=== PATIENT | female | born 1970 | race Caucasian/White ===

== ENCOUNTER 2016-09-02 15:21 | Emergency (ER) | payer OTHER ==
--- NOTE | 2016-09-02 18:05 | ED CLINICAL REPORT ---
Clinical Report - Physicians/Mid Levels [facility] [address] [place] [address] 09/02/2016 15:24 [id number] Time Seen: 15:30 Sep 02 2016. Arrived- By private vehicle. Historian- patient. HISTORY OF PRESENT ILLNESS Chief Complaint: ABDOMINAL PAIN. It is described as cramping and it is described as located in the left abdomen and left lower quadrant. This started about 2 months ago; Patient has been having constipation for the last 2 months. She says in the past she's been diagnosed with IBS but hasn't had constipation for this long. She did have 2 small bowel movements this morning because she says she started taking stool softeners. She said she discussed this with her primary care provider, however, she says she is a new patient with them and they didn't have enough time to address this in addition to her other medical issues. She says she's been under more stress lately due to some family issues. She has had alternating weight loss or weight gain. No blood in the stool. No change in stool caliber. She had a colonoscopy over 10 years agobut hasn't had one recently. and is still present. No nausea, loss of appetite, vomiting or diarrhea. Similar symptoms previously: Recent medical care: The patient was seen recently at another facility in a clinic. REVIEW OF SYSTEMS The patient has had constipation and weight loss. No black stools, hematemesis, difficulty with urination, pain with urination or bloody stools. No fever, headache, chest pain, difficulty breathing or cough. No joint pain, skin rash or chills. Heartburn off and on for 2 months. All systems otherwise negative, except as recorded above. PAST HISTORY See nurses notes. No history of hypertension or diabetes mellitus. SOCIAL HISTORY No alcohol use or drug use. ADDITIONAL NOTES The nursing notes have been reviewed. PHYSICAL EXAM Appearance: Alert. Oriented X3. No acute distress. Anxious. Does not appear to be in pain. Eyes: Pupils equal, round and reactive to light. Eyes normal inspection. ENT: Nose normal. Pharynx normal. Neck: Normal inspection. Neck supple. No JVD or lymphadenopathy. CVS: Normal heart rate and rhythm. Heart sounds normal. Respiratory: No respiratory distress. Breath sounds normal. Abdomen: Soft. Mild tenderness in the left lower quadrant. No guarding or rebound tenderness. No organomegaly. No mass. Mildly obese. Back: Normal inspection. No CVA tenderness. Skin: Skin warm and dry. Normal skin color. Normal skin turgor. Extremities: Extremities exhibit normal ROM. No lower extremity edema. Neuro: Oriented X 3. No motor deficit. No sensory deficit. LABS, X-RAYS, AND EKG Laboratory Tests: UA-Culture if indicated: (EMILY: 09/02/2016 15:30) ( [facility] [place] 09/02/2016 16:36) Final results Test Result Flag Units (Reference) URINE COLOR YELLOW URINE APPEARANCE CLEAR URINE GLUCOSE NEGATIVE (NEGATIVE) URINE BILIRUBIN NEGATIVE (NEGATIVE) URINE KETONE NEGATIVE (NEGATIVE) URINE SPECIFIC GRAVITY <= 1.005 L (1.010-1.030) URINE PH 6.0 (5.0-8.0) URINE PROTEIN NEGATIVE (NEGATIVE) URINE UROBILINOGEN 0.2 EU/dL (0.2-1.0) URINE NITRITE NEGATIVE (NEGATIVE) URINE BLOOD TRACE-INTACT (NEGATIVE) URINE LEUK ESTERASE POSITIVE (NEGATIVE) URINE RBC 1-3 rbc/hpf (0-1) URINE WBC 10-15 wbc/hpf (0-1) URINE EPITHELIAL CELLS 3-5 EPI/hpf (0-5) URINE BACTERIA MODERATE (2+ TO 3+) (NONE SEEN) URINE COMMENT CULTURE INDICATED MUCUS 2+URINE CULTURES ARE SET-UP BASED ON THE FOLLOWING CRITERIA:POSITIVE NITRITEPOSITIVE LEUKOCYTE ESTERASEGREATER THAN 10 WHITE BLOOD CELLSMODERATE (2+) OR GREATER BACTERIA Urine: (EMILY: 09/02/2016 15:30) ( [facility] 09/02/2016 16:29) Final results Test Result Flag Units (Reference) URINE NEGATIVE CBC w Diff: (EMILY: 09/02/2016 16:20) ( MsgRcvd 09/02/2016 16:36) Final results Test Result Flag Units (Reference) WHITE BLOOD COUNT 7.5 K/uL (4.5-11.5) RED BLOOD COUNT 4.25 M/uL (4.00-5.20) HEMOGLOBIN 13.3 gm/dL (12.0-16.0) HEMATOCRIT 40.2 % (36.0-46.0) MEAN CELL VOLUME 95 fL (80-100) MEAN CORPUSCULAR HGB 31 pg (26-34) MEAN CORPUSCULAR HGB CONC 33 g/dL (31-37) RED CELL DISTRIBUTION WIDTH 13.8 % (11.6-14.8) PLATELET COUNT 299 K/uL (150-400) NEUTROPHIL % 58.0 % (50-75) LYMPH % 30.1 % (25-40) MONO % 9.9 % (3-14) EOSINOPHIL % 1.7 % (0-4) BASOPHIL % 0.3 % (0-2) CMP: (EMILY: 09/02/2016 16:20) ( MsgRcvd 09/02/2016 17:57) Final results Test Result Flag Units (Reference) GLUCOSE 116 H mg/dL (70-110) BUN 12 mg/dL (7-18) CREATININE 1.0 mg/dL (0.6-1.3) Estimated GFR >60 mL/min Estimated GFR- >60 mL/min Note: Persistent reduction over 3 months in eGFR<60 mL/min/1.73 m2 defines CKD. Patients with eGFR values>=60 mL/min/1.73 m2 may also have CKD if evidence ofpersistent proteinuria. Additional information may be foundat www.kidney.org. SODIUM 145 mmol/L (136-145) POTASSIUM 3.6 mmol/L (3.5-5.1) CHLORIDE 106 mmol/L (98-107) CARBON DIOXIDE 30 mmol/L (21-32) CALCIUM 9.2 mg/dL (8.5-10.1) TOTAL PROTEIN 7.8 g/dL (6.4-8.2) ALBUMIN 4.0 g/dL (3.3-5.0) BILIRUBIN, TOTAL 0.7 mg/dL (0.0-1.0) ALKALINE PHOSPHATASE 64 U/L (46-116) AST (SGOT) 17 U/L (15-37) ALT (SGPT) 27 U/L (12-78) THYROID STIMULATING HORMONE 1.041 uIU/mL (0.34-3.74) . PROGRESS AND PROCEDURES Course of Care: 16:07 09/02/16. Patient stable. Long-standing issues. No fever. Very mild left lower quadrant pain. We'll get basic labs for reassurance but mostly this is an issue that needs to be followed by her primary care provider and GI in an outpatient setting. 18:08 09/02/16. Lab is back and looks good. We'll discharge her home. She is remained stable the entire time here. Add MiraLAX. Follow up with her primary care provider next week. Disposition: Discharged in good condition. CLINICAL IMPRESSION Constipation Chronic irritable bowel syndrome. INSTRUCTIONS Rest at home today and tomorrow until better. Drink plenty of fluids. No dietary restrictions. Warnings: Further evaluation is necessary. GENERAL WARNINGS: Return or contact your physician immediately if your condition worsens or changes unexpectedly, if not improving as expected, or if other problems arise. SPECIFICALLY, return if you develop fever, vomiting, the inability to keep fluids down, blood in diarrhea or fainting. Prescription Medications: Miralax: take 1 measuring cupful supplied mixed in 8 ounces water or juice every day. Dispense twenty-six (26) ounce bottle. Two refills. Substitution is permissible. Follow-up: Follow up with your doctor in four days even if well. Follow-up with: Follow up in two weeks. Reason for referral: to discuss colonoscopy as recommended by her primary care provider. (Electronically signed by Shree Dow, 09/02/2016 18:42)
--- NOTE | 2016-09-02 18:06 | ED NURSING NOTES ---
Clinical Report - Nurses [facility] [address] [place] [address] 09/02/2016 15:24 Patient: KATE MILLER TRIAGE Triage time 1531. Acuity: LEVEL 3. Chief Complaint: ABDOMINAL PAIN. --15:47 Shelbie Fabian R.N. 15:31 09/02/16. BP: 141/90. HR: 88. RR: 20. O2 saturation: 98%. Temp: 98.1 F. Pain level now: 09/09. --15:47 Shelbie Fabian R.N. Weight: 81.6 kg stated. Height/Length: 63 inches Per Patient. BMI: 31.9. --15:31 Shelbie Fabian R.N. Medications Senna Smooth Oral 1 daily . Vitamin D Oral high dose 1x week . --18:21 Shelbie Fabian R.N. Allergies Latex. Neurontin. Sulfa Antibiotics. --15:35 Shelbie Fabian R.N. History Arrived by private vehicle. Historian: patient. Unaccompanied. Primary physician (harry méndez). The patient has had abdominal pain. ( pt has low midline abd pain, pt had been having constipation--has been taking stool softeners and had 2 BM's today so feeling better. - pt also some acid reflux/heartburn pain--has had in the past, thought she might have ulcers). No nausea or vomiting. SOCIAL HX: Smoker- current status unknown (quit +12 years ago). No alcohol use or drug use. --15:47 Shelbie Fabian R.N. PROBLEMS: Pharyngitis. DVT - Deep Venous Thrombosis. Acute Pain. Spurs in right knee. Asthma. Blood clot in left "calf". Arthritis. Chronic Back Pain. Sciatica. --15:34 Shelbie Fabian R.N. ADDITIONAL SURGERIES: Ankle. Skin grafting. --15:34 Shelbie Fabian R.N. Interventions ID band on patient. To treatment room. --15:47 Shelbie Fabian R.N. PHYSICAL ASSESSMENT 1531. Ambulatory to room. Patient gowned. GENERAL / NEURO / PSYCH: Alert. Oriented X 4. Appears in no acute distress. RESPIRATORY: Respirations not labored. CVS: Capillary refill less than 2 seconds. GI / : Abdomen soft. No nausea noted. No emesis noted. No diarrhea. No blood in the stool. SKIN: Skin is warm and dry. --15:47 Shelbie Fabian R.N. ( Pt also reports that she is having lucio-menopausal hot flashes). --15:48 Shelbie Fabian R.N. NURSING PROGRESS NOTES 15:31 09/02/16. Patient gowned. Head of bed elevated. Reassurance given. Patient identifiers checked. Call light placed in reach. Side rails up. Bed placed in lowest position. Patient ready for evaluation- chart flagged. --15:31 Shelbie Fabian R.N. 15:32 09/02/16. Patient ID band checked for patient name and birthdate: patient confirmed. Clean catch urine collected with return of yellow-colored urine; sample sent to lab for urinalysis and culture. Specimen labeled in the presence of the patient. --15:42 Shelbie Fabian R.N. 16:20 09/02/2016 Site #1 started via IV in the left antecubital space with an 20g angiocath, with aseptic technique and good blood return; one attempt. Blood drawn: rainbow set. Labeled in the presence of the patient and sent to the lab. Saline lock flushed with 10 mL saline. --16:32 Shelbie Fabian R.N. 18:05 09/02/2016 Site #1 removed upon discharge. Bandaid applied. --18:18 Shelbie Fabian R.N. 17:00 resting quietly, watching t.v. in no acute distress. --18:19 Shelbie Fabian R.N. 17:00 09/02/16. BP: 141/56. HR: 76. RR: 18. O2 saturation: 99%. Temp: deferred. Pain level now: 08/12. --18:19 Shelbie Fabian R.N. DISPOSITION / DISCHARGE 18:10. Condition at departure: improved and stable. No learning barriers present. Discharge instructions provided and reviewed with the patient. Reviewed medication(s) (mirilax). Patient verbalized understanding. Written instructions provided in Spanish. The patient was discharged home and unaccompanied at time of discharge. She left the Emergency Department ambulatory and via private vehicle. Patient driving. --18:17 Shelbie Fabian R.N. 18:10 09/02/16. BP: 158/71. HR: 81. RR: 16. O2 saturation: 98%. Temp: deferred. Pain level now: 07/12. --18:17 Shelbie Fabian R.N. Locked/Released at 09/02/2016 18:22 by Shelbie Fabian R.N.
--- NOTE | 2016-09-02 18:06 | ED ORDER SUMMARY ---
..... Patient: KATE MILLER OrderSheet [facility] VisitID: [id number] [address] [place] [address] 45y, F Registration Date/Time: 09/02/2016 ORDER SHEET Weight: 81.6 kg (stated) Allergies: Latex, Neurontin, Sulfa Antibiotics GENERAL ORDERS: CBC w Diff Urgent (16:03 09/02/2016 JCoates) (Ack 16:05 LTapper) (16:33 DDean R.N.) CMP Urgent (16:03 09/02/2016 JCoates) (Ack 16:05 LTapper) (16:33 DDean R.N.) UA-Culture if indicated Urgent (16:03 09/02/2016 JCoates) (Ack 16:05 LTapper) (16:16 DDean R.N.) Urine Urgent (16:03 09/02/2016 JCoates) (Ack 16:05 LTapper) (16:16 DDean R.N.) TSH Urgent (16:03 09/02/2016 JCoates) (Ack 16:05 LTapper) (16:33 DDean R.N.) MEDICATION ORDERS: IV FLUIDS: IV Saline Lock (16:03 09/02/2016 JCoates) (Ack 16:16 DDean R.N.) (16:33 DDean R.N.) ORDER SHEET NOTES: [Electronically signed by Sehlbie Fabian R.N. (18:22 09/02/2016)] [Electronically signed by Shree Dow (18:42 09/02/2016)] [Electronically locked/signed by Shelbie Fabian R.N. (18:22 09/02/2016)]
--- NOTE | 2016-09-02 18:06 | ED ORDER SUMMARY ---
..... Patient: KATE MILLER OrderSheet [facility] VisitID: [id number] [address] [place] [address] 45y, F Registration Date/Time: 09/02/2016 ORDER SHEET Weight: 81.6 kg (stated) Allergies: Latex, Neurontin, Sulfa Antibiotics GENERAL ORDERS: CBC w Diff Urgent (16:03 09/02/2016 JCoates) (Ack 16:05 LTapper) (16:33 DDean R.N.) CMP Urgent (16:03 09/02/2016 JCoates) (Ack 16:05 LTapper) (16:33 DDean R.N.) UA-Culture if indicated Urgent (16:03 09/02/2016 JCoates) (Ack 16:05 LTapper) (16:16 DDean R.N.) Urine Urgent (16:03 09/02/2016 JCoates) (Ack 16:05 LTapper) (16:16 DDean R.N.) TSH Urgent (16:03 09/02/2016 JCoates) (Ack 16:05 LTapper) (16:33 DDean R.N.) MEDICATION ORDERS: IV FLUIDS: IV Saline Lock (16:03 09/02/2016 JCoates) (Ack 16:16 DDean R.N.) (16:33 DDean R.N.) ORDER SHEET NOTES: [Electronically signed by Shelbie Fabian R.N. (18:22 09/02/2016)] [Electronically signed by Shree Dow (18:42 09/02/2016)] [Electronically locked/signed by Shelbie Fabian R.N. (18:22 09/02/2016)]
--- NOTE | 2016-09-02 18:42 | ED MAR SUMMARY ---
..... Medication Administration Record [facility] [address], [place] [id number] Patient: KATE MILLER Visit ID: [id number] 45y, F Weight: 81.6 kg Height/Length: 63 in BMI: 31.9 ALLERGIES: Latex, Neurontin, Sulfa Antibiotics
--- NOTE | 2016-09-02 18:42 | ED MED RECONCILIATION SUMMARY ---
Patient: KATE MILLER Medication Reconciliation Report [facility] VisitID: [id number] [address] [place] [address] 45y, F Registration Date/Time: 09/02/2016 Weight: 81.6 kg Height/Length: 63 in. BMI: 31.9 ALLERGIES: Latex, Neurontin, Sulfa Antibiotics The patient's Home Medications are listed below: THE FOLLOWING MEDICATIONS NEED TO BE RECONCILED: Senna Smooth Oral 1 daily Vitamin D Oral high dose 1x week The source(s) of the original Home Medication information: Not obtained. The following Medications were given to the patient in the Emergency Department: None. The following Medications were prescribed to the patient: Miralax: take 1 measuring cupful supplied mixed in 8 ounces water or juice every day. Dispense twenty-six (26) ounce bottle. Two refills. Substitution is permissible. -- Shree Dow
--- NOTE | 2016-09-02 18:42 | ED MED RECONCILIATION SUMMARY ---
Patient: KATE MILLER Medication Reconciliation Report [facility] VisitID: [id number] [address] [place] [address] 45y, F Registration Date/Time: 09/02/2016 Weight: 81.6 kg Height/Length: 63 in. BMI: 31.9 ALLERGIES: Latex, Neurontin, Sulfa Antibiotics The patient's Home Medications are listed below: THE FOLLOWING MEDICATIONS NEED TO BE RECONCILED: Senna Smooth Oral 1 daily Vitamin D Oral high dose 1x week The source(s) of the original Home Medication information: Not obtained. The following Medications were given to the patient in the Emergency Department: None. The following Medications were prescribed to the patient: Miralax: take 1 measuring cupful supplied mixed in 8 ounces water or juice every day. Dispense twenty-six (26) ounce bottle. Two refills. Substitution is permissible. -- Shree Dow
--- NOTE | 2016-09-02 18:42 | ED MAR SUMMARY ---
..... Medication Administration Record [facility] [address] [place], [place] [id number] Patient: KATE MILLER Visit ID: [id number] 45y, F Weight: 81.6 kg Height/Length: 63 in BMI: 31.9 ALLERGIES: Latex, Neurontin, Sulfa Antibiotics
--- NOTE | 2016-09-02 18:42 | ED DISCHARGE INSTRUCTIONS ---
Patient: KATE MILLER General Instructions [facility] VisitID: [id number] [place] [address] 45y, F Registration Date/Time: 09/02/2016 Constipation Chronic irritable bowel syndrome. INSTRUCTIONS Rest at home today and tomorrow until better. Drink plenty of fluids. No dietary restrictions. Warnings: Further evaluation is necessary. GENERAL WARNINGS: Return or contact your physician immediately if your condition worsens or changes unexpectedly, if not improving as expected, or if other problems arise. SPECIFICALLY, return if you develop fever, vomiting, the inability to keep fluids down, blood in diarrhea or fainting. Prescription Medications: Miralax: take 1 measuring cupful supplied mixed in 8 ounces water or juice every day. Dispense twenty-six (26) ounce bottle. Two refills. Substitution is permissible. Follow-up: Follow up with your doctor in four days even if well. Follow-up with: Follow up in two weeks. Reason for referral: to discuss colonoscopy as recommended by her primary care provider. ADDITIONAL INFORMATION Constipation (Adult) Constipation is bowel movements that are less frequent than usual. Stools often become very hard and difficult to pass. This may lead to abdominal pain and bloating. It may also cause painful bowel movements. Constipation may be due to a diet thats low in fiber. Some medications, especially pain medications, can also cause it. Constipation may be treated with enemas, suppositories, laxatives or stool softeners. Your doctor will advise you which will work best for you. Follow the advice below to help avoid this problem in the future. Home Care Medication: Take any medicines as directed. Some laxatives are safe only for occasional use. Others can be taken on a regular basis. Talk to your doctor or pharmacist if you have questions. General Care: Prescription pain medications can cause constipation. If you are prescribed pain medications, ask the doctor whether you should also take a stool softener. A diet high in fiber with plenty of fluids helps to maintain regular, soft bowel movements. The following foods are good sources of dietary fiber: Cereals and breads: Whole grain cereal with bran, oatmeal, rolled oats, whole grain breads Fruits: All fruits (fresh and dried), raisins, prunes, apricots, berries, figs Vegetables: Any fresh vegetables, especially peas, broccoli, brussels sprouts, winter squash, green beans, cauliflower, simeon beans, carrots Other: Popcorn, brown rice Drink plenty of water when you increase the amount of fiber you eat. Follow Up with your doctor or return to this facility if symptoms do not improve in the next few days. You may require further tests or a referral to a specialist. Get Prompt Medical Attention if any of the following occur: Fever over 100.4F (38C) Failure to resume normal bowel movements Increasing abdominal or back pain Nausea or vomiting Abdominal swelling Blood in the stool Weakness, dizziness or fainting Unexpected vaginal bleeding Irritable Bowel Syndrome Irritable Bowel Syndrome (IBS) is a disorder of the intestines. It causes one of three patterns of symptoms: Chronic abdominal pain and constipation (spastic colitis) Recurring episodes of diarrhea, with or without pain Alternating diarrhea and constipation The cause of IBS is not known. Symptoms are usually mild and can be controlled by learning to manage stress and making changes in your diet and lifestyle. These include: Constipation may be avoided by increasing fiber in your diet. Fiber supplements, psyllium (Metamucil) or methylcellulose (Citrucel) with extra fluids are also helpful. Diarrhea can be treated with careful use of [id number] medicines such as loperamide (Imodium). Bloating or passing excess gas may be controlled by limiting your intake of carbonated beverages, salads, raw fruits and vegetables, cabbage, broccoli and cauliflower. Stress often benefits from counseling as well as self-help measures such as exercise, yoga, and meditation. More severe symptoms may require prescription medicine. Depression can be a component of this illness and antidepressant medicine may be prescribed. This may actually help with diarrhea, constipation, cramping as well as symptoms of depression. Intestinal cramping may benefit from anticholinergic medicine. Home Care: Look for factors that seem to worsen your symptoms such as stress and emotions, rapid or irregular eating habits, overuse of laxatives or enemas. Certain foods such as fatty foods, fried foods, caffeine, and dairy products may worsen your symptoms. Keep a food log to figure out what you are sensitive to. If you have constipation, putting more fiber into your diet will help. Foods high in fiber include fresh fruits and peelings you can eat, raw or lightly cooked vegetables, whole grain cereals, nuts, dried beans and peas. Bran is also a very good source of fiber. If severe stress is a factor in your life and self help methods are not working, talk to your doctor about ways to manage stress. Follow Up with your doctor or as directed by our staff if you do not begin to improve over the next 2-3 days. Get Prompt Medical Attention if any of the following occur: Increase in abdominal pain Constant abdominal pain that moves to the right-lower abdomen Persistent vomiting (can't keep liquids down) Excessive diarrhea Blood in your stool (red or black color) or mucus in your stool Feeling very weak or dizzy, fainting or extreme thirst Fever of 100.4F (38C) or higher, or as directed by your healthcare provider You have been given the following additional information: Constipation (Adult) Irritable Bowel Syndrome Rest at home today and tomorrow until better. (Electronically signed by Shree Dow, 09/02/2016 18:42)
== END 2016-09-02 18:10 | disposition home or self-care (01) ==
LOC: ED SRH 15:21
DX: K58.1 Irritable bowel syndrome with constipation (principal)
CPT/HCPCS: 90004; 90100; 90148; 90469; 93070; 93140; 95059